=== PATIENT | female | born 1955 | race Hispanic/Latino ===

== ENCOUNTER 2017-04-24 21:23 | Emergency (ER) | payer OTHER ==
[~2017-04-24] VITALS: Ht 149.9 cm; Wt 63.2 kg
[2017-04-24 21:43] VITALS: BP 176/81; PULSE 63; RESP 16; O2SAT 99
--- NOTE | 2017-04-25 00:58 | ED.REPORT ---
HPI-Abd Pain F 2 and Over Date of Service Apr 25, 2017 ED Provider: Chepe Gee MD The patient is a 61 year old German-speaking female with a hx of HTN presenting to the ED with her daughter complaining of right eye pain after getting dirt in her right eye. The context of the injury was while she was at work picking blueberries earlier today. Shook dirt out of her jacket and felt something in her eye. She rates the pain as a 7/10 severity. She normally wears glasses, but does not wear contacts. She did not bring her glasses with her to the ER today. . Nursing Notes Stated Complaint: PAINFUL RIGHT EYE Chief Complaint: Eye Nursing Notes Reviewed: Yes Allergies: Coded Allergies: No Known Allergies (Unverified , 04/24/17) General Time Seen by MD: 00:57 Chief Complaint Other (right eye pain) Hx Obtained from: [employer] (Daughter) Arrived by: Walk-in Sudden in Onset?: Yes Onset Occurred: 9 - 12 hours ago Symptom Duration: Since onset Severity: Current: Pain level 7 out of 10 Severity: Maximum: Pain level 7 out of 10 Context: Immunization Status General: Unknown Recent Healthcare: No recent hospitalization, Recent doctor visit Similar Sx Previous: No Past Medical History Past Medical History Notes: Denies pmsh. Past Medical History HTN Past Surgical History Denies Smoking History Unknown if Ever Smoker Ambulatory Status Ambulatory Status: Independent Review of Systems +Right eye pain and redness Constitutional: Denies: Irritability Respiratory: Denies: Shortness of breath GI: Denies: Vomiting Complete sys rev & neg: except as marked. Eyes: Denies: Photophobia Ears / Nose / Throat: Denies: Drooling Skin: Denies Rash Neurologic: Denies: Shaking Physical Exam Initial Vital Signs Vital Signs (First) Date Time Temp Pulse Resp B/P Pulse Ox O2 Delivery O2 Flow Rate FiO2 04/24/17 21:43 36.7 63 16 176/81 99 Room Air Initial VS: Reviewed Neck: Supple, Full range of motion Extremities: Vascular intact Skin: Warm, Dry Neurologic: Alert, Oriented Psychiatric: Mood/affect normal General / Constitutional: Awake, Alert, No apparent distress Respiratory / Chest: Atraumatic, No respiratory distress Cardiovascular: Heart rate NL Abdomen: Atraumatic, Soft Back: Atraumatic Head / Eyes: PERRL, Eyelids NL Cornea / Anterior Chamber: Positive: Abrasion R... (about 4 o'clock) Conjunctiva / Sclera: Positive: Injected right Eyelash in right eye; removed Anterior chambers deep Visual acuity 20/50 uncorrected Procedures Slit Lamp Exam Eyelash in right eye; removed Visual acuity 20/50 uncorrected Time: 01:25 Procedure Performed by: ED physician Which Eye: Right Dilating Agent & Anesthesia: Anesthesia: Tetracaine Eyelid / Conjunctiva / Sclera: Eyelid(s) normal, Conjunctiva injected Cornea/Ant Chamber/Iris/Lens: Corneal abrasion, Ant chamb depth normal Re-Eval/Medical Decision Re-Evaluation/Progress : Time of Eval: 01:23 Re-Evaluation/Progress Note: Patient rechecked. Additionaly eye drops given. Physical exam performed. Slit lamp procedure performed. Discussed plan discharge. Patient understands and agrees with plan. All questions addressed at this time. Counseled Regarding: Diagnosis, Lab results, Need for follow-up, When/why to return to ED Discharge & Departure Impression: Primary Impression: Corneal abrasion Encounter type: initial encounter Laterality: right Qualified Code: S05.01XA - Injury of conjunctiva and corneal abrasion without foreign body, right eye, initial encounter Disposition: Home Patient Instructions: Corneal Abrasion (ED) Additional Instructions: Apply erythromycin ointment 3-4 times a day until eye discomfort is improved, this should occur within 24 hours. Use Tylenol as needed for pain. Cool compresses for comfort. Off work today for injury. Return to emergency Department if pain is getting worse or if not resolved in 2 days. Referrals: Karla Keyes MD (PCP) Scribe Attestation Portions of this note were transcribed by Rowdy Gomez and Miller Harper. I, Dr. Gee personally performed the history, physical exam and medical decision- making; I reviewed and confirmed the accuracy of the information in the transcribed note. Signed by: Rajat Castellon, 04/25/2017 Karla Keyes MD, Donald L MD Apr 25, 2017 00:58 Apr 25, 2017 01:05 ROWDY GOMEZ Apr 25, 2017 02:31
[2017-04-25] MEDS ORDERED: 0.9% Sodium Chloride Inhalation Solution RIGHT_EYE ONE (01:05)
[2017-04-25] MEDS ORDERED: Tetracaine 0.5% 4 mL Ophthalmic Solution RIGHT_EYE ONE (01:05)
[2017-04-25] MEDS ORDERED: Fluorescein 0.6 mg Ophthalmic Strip RIGHT_EYE ONE (01:05)
[2017-04-25] MEDS ORDERED: _Erythromycin 0.5% Oph Oint 3.5 gm AFFECT_EYE SCH (08:30)
== END 2017-04-25 02:43 | disposition home or self-care (01) ==
LOC: SED 21:23
DX: S05.01XA Injury of conjunctiva and corneal abrasion without foreign body, right eye, initial encounter (principal); X58.XXXA Exposure to other specified factors, initial encounter; Y93.89 Activity, other specified; Y92.89 Other specified places as the place of occurrence of the external cause; Y99.8 Other external cause status; I10 Essential (primary) hypertension